=== PATIENT | female | born 1995 | race American Indian/Alaskan Native ===

== ENCOUNTER 2019-03-16 09:35 | Emergency (ER) | payer SELFPAY ==
[2019-03-16 09:42] VITALS: BP 120/80
--- NOTE | 2019-03-16 10:25 | Emergency Department Report ---
Chief Complaint: Urogenital-Female Stated Complaint: STD TEST Time Seen by Provider: 03/16/19 10:20 - HPI History of Present Illness: Patient is 23 years old female was no significant past medical history. Patient presented to the ER, asking for home STD check. Patient stated that she had some bumps on her private area. Patient denied any fever or chills. No vaginal bleeding or vaginal discharge. - Exam Vital Signs: Vital Signs 03/16/19 09:38 Temperature 97.5 F L Pulse Rate 68 Respiratory 18 Rate Blood Pressure 120/80 O2 Sat by Pulse 87 Oximetry MSE screening note: Focused history and physical exam performed. Due to findings the following was ordered: ED Disposition for MSE Condition: Stable
== END 2019-03-16 10:52 | disposition left against medical advice (07) ==
LOC: ED 09:35
DX: Z11.3 Encounter for screening for infections with a predominantly sexual mode of transmission (principal)
CPT/HCPCS: 99281